=== PATIENT | female | born 1950 | race Caucasian/White ===

== ENCOUNTER → 2017-02-21 | Outpatient (CLI) | payer BC ==
--- NOTE | 2017-02-21 09:26 | CT ---
EXAM DESCRIPTION: Head CLINICAL HISTORY: 66 years, Female, CHRONIC TENSION TYPE HEADACHE. G44.221 COMPARISON: No comparison studies available. Report from an MRI study October 2013 available. Images currently unavailable FINDINGS: Unenhanced images through the brain. This examination was performed according to our departmental dose optimization program, which includes automatic exposure control, adjustment of the MA and/or kV according to the patient size and/or use of iterative reconstruction technique. No intracranial hemorrhage or mass. Mild cortical atrophy. Mild microischemic change periventricular white matter. Some minimal ethmoid sinus mucosal thickening. Other visualized paranasal sinuses and mastoid air cells clear. IMPRESSION: Study within normal limits for age. No intracranial hemorrhage or mass. Electronically signed by: Andrew Case MD 02/21/2017 9:25 AM [facility] [employer]
== END ==
LOC: CT 08:18
PROVIDERS: ATTEND Nurse Practitioner
DX: G44.221 Chronic tension-type headache, intractable (principal); H74.8X3 Other specified disorders of middle ear and mastoid, bilateral

== ENCOUNTER → 2017-09-03 | Outpatient (CLI) | payer BC ==
--- NOTE | 2017-09-03 15:57 | CT ---
EXAM DESCRIPTION: Abdomen/Pelvis w/o Contrast: Computed Tomography. CLINICAL HISTORY: R10.9. Unspecified abdominal pain. COMPARISON: CT abdomen and pelvis 10/04/2010. TECHNIQUE: Spiral-axial scans 2.0, 2.0 mm intervals through the abdomen and pelvis without oral or IV contrast. Coronal and sagittal 2.0 mm reconstructions. Total Exam DLP: 1322.5 mGy-cm. This exam was performed according to our departmental CT dose-optimization program which includes automated exposure control, adjustment of the mA and/or kV according to patient size and/or use of iterative reconstruction technique; to reduce radiation dose to as low as reasonably achievable (ALARA). FINDINGS: Lung bases and pleura: Negative. Liver, stomach, spleen, and adrenal glands: Small sliding hiatal hernia in the stomach. Minimal enlargement of the left adrenal gland is stable. Distended segment of the duodenum contains fluid on this study and gas on the prior study and could represent a diverticulum. Right lobe of the liver craniocaudal dimension 20.6 cm but no focal lesions. Overall density decreased. Spleen and right adrenal gland unremarkable. Pancreas, Gallbladder, and Ducts: Gallbladder not seen. Common bile duct normal caliber. Pancreas negative. Kidneys and Ureters: Negative. Mesentery: No fatty stranding or fascial thickening. No free air or ascites. Aorta: Minimal atherosclerotic calcification with normal outer caliber. Small Bowel: Negative. Terminal Ileum/Cecum: Normal caliber of the TI. Gas and fecal material in the cecum. Appendix not seen. Normal density of the surrounding fat. Colon: Diffuse fecal material in the colon with minimal sigmoid redundancy. Pelvic Organs: Unremarkable. No free fluid. Spine and Bony Pelvis: Spondylosis L4-5 L3-4 and L1-2 with minimal scoliosis. Abdominal Wall/Back Soft Tissues: Minimal edema in the subcutaneous lower anterior abdominal wall bilaterally. Small fatty inguinal hernias bilaterally not containing bowel. Bilateral small inguinal lymph nodes. IMPRESSION: 1. Hepatomegaly and steatosis with no ascites. 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 2. Lumbar spondylosis. 3. No free air or free fluid. No large peritoneal or retroperitoneal mass. Electronically signed by: Dandre Valdez MD 09/03/2017 3:55 PM CDT
== END ==
LOC: CT 09:28
PROVIDERS: ATTEND Nurse Practitioner
DX: R10.9 Unspecified abdominal pain (principal); K76.0 Fatty (change of) liver, not elsewhere classified

== ENCOUNTER → 2017-12-03 | Outpatient (CLI) | payer BC ==
--- NOTE | 2017-12-04 20:40 | MAM ---
EXAM DESCRIPTION: 3D Screening BILATERAL : Digital Mammography. CLINICAL HISTORY: 67 years Female SCREEN . No complaints. No personal history breast cancer. Remote family history of breast cancer. Childbirth. Postmenopausal. No HRT. Lifetime risk of developing breast cancer (Tyrer-Cuzick model)(%): 5 COMPARISON: Baseline study at this facility.. No prior reports available. TECHNIQUE: Bilateral CC and MLO projection full-field images, Digital tomosynthesis mammographic technique. Bilateral digital 2-D full-field MLO images. CAD not utilized. FINDINGS: The breast parenchymal density pattern is: Scattered areas of fibroglandular density. No skin thickening or nipple retraction. Small right axillary lymph nodes bilateral solitary microcalcifications.. No new focal, stellate mass or density, focal asymmetry , and no suspicious microcalcifications bilaterally. IMPRESSION: Benign exam. BIRAD CATEGORY: 2 BENIGN FINDINGS. RECOMMENDATIONS: FOLLOW UP: Routine digital bilateral screening, one year interval from November 2017. Written communication explaining the IMPRESSION and follow-up, will be mailed to the patient and referring health care provider. According to the [employer], yearly mammograms are recommended starting at age 40 and continuing as long as a woman is in good health. Any breast change noted on a breast self-exam should be reported promptly to the patient's healthcare provider. Breast MRI is recommended for women with an approximately 20-25% or greater lifetime risk of breast cancer, including women with a strong family history of breast or ovarian cancer and women who have been treated for Hodgkin's disease. A negative mammographic report should not delay tissue diagnosis in patients with significant clinical history or physical findings. Extremely dense breast tissue limits the sensitivity of digital mammography. Electronically signed by: Dandre Valdez MD 12/04/2017 8:38 PM CDT
== END ==
LOC: MAMMO 11:00
PROVIDERS: ATTEND Nurse Practitioner
DX: Z12.31 Encounter for screening mammogram for malignant neoplasm of breast (principal)

== ENCOUNTER → 2020-04-24 | Outpatient (CLI) | payer MEDICARE, BC ==
--- NOTE | 2020-04-24 10:49 | RAD ---
EXAM DESCRIPTION: Hand,Right 3 Views CLINICAL HISTORY: PAIN IN RIGHT HAND COMPARISON: None. TECHNIQUE: 3 views right FINDINGS: Mild degenerative changes are observed in the distal interphalangeal joints. There is also mild degenerative change in the metacarpal carpal articulation of the first digit. Mild radial side intracarpal arthritis is seen. No fracture is detected. IMPRESSION: Mild degenerative changes are observed. No fracturing is detected. Electronically signed by: Andrei Clarke MD 04/24/2020 10:47 AM [facility]
--- NOTE | 2020-04-24 10:50 | RAD ---
EXAM DESCRIPTION: Hand,Left 3 Views CLINICAL HISTORY: PAIN IN LEFT HAND COMPARISON: None. TECHNIQUE: 3 views left FINDINGS: Degenerative changes are observed in the metacarpal carpal articulation of the first digit. Distal interphalangeal joint arthritis is observed in the hand. No fracture is detected. Mild degenerative changes are also observed in the metacarpal phalangeal joint of the second digit. IMPRESSION: Mild degenerative changes are observed. No fracturing is detected. Electronically signed by: Andrei Clarke MD 04/24/2020 10:48 AM [facility]
== END ==
LOC: RAD 08:51
PROVIDERS: ATTEND Orthopaedic Surgery
DX: M19.041 Primary osteoarthritis, right hand (principal); M19.042 Primary osteoarthritis, left hand